=== PATIENT | female | born 1945 | race Caucasian/White ===

== ENCOUNTER → 2016-10-23 | Outpatient (CLI) | payer OTHER ==
[2016-10-23 18:07] LABS: ALT/SGPT 22 U/L (12-78); AST/SGOT 15 U/L (15-37); BLOOD UREA NITROGEN 12 mg/dl (7-18); BUN/CREATININE RATIO 15.2 (10-20); CALCIUM 9.3 mg/dl (8.5-10.1); CARBON DIOXIDE 32 mmol/L (21-32); CHLORIDE 98 mmol/L (98-107); CHOLESTEROL 235 mg/dl (0-200); CREATININE 0.79 mg/dl (0.60-1.20); GLUCOSE 100 mg/dl (70-99); POTASSIUM 4.3 mmol/L (3.5-5.1); SODIUM 138 mmol/L (136-145); TRIGLYCERIDES 106 mg/dl (0-150); VERY LOW DENSITY LIPOPROT CALC 21 mg/dl
[2016-10-23 18:10] LABS: CHOLESTEROL/HDL RATIO 3.9; HDL CHOLESTEROL 60 mg/dl; LDL CHOLESTEROL CALCULATED 154 mg/dl
== END | disposition home or self-care (01) ==
LOC: C.LABMFLN 12:17
PROVIDERS: ATTEND Family Medicine
DX: E78.5 Hyperlipidemia, unspecified (principal); I10 Essential (primary) hypertension

== ENCOUNTER → 2017-09-04 | Outpatient (CLI) | payer OTHER ==
[2017-09-04 18:11] LABS: BLOOD UREA NITROGEN 17 mg/dl (7-18); CALCIUM 9.1 mg/dl (8.5-10.1); CARBON DIOXIDE 35 mmol/L (21-32); CREATININE 0.85 mg/dl (0.60-1.20); GLUCOSE 100 mg/dl (70-99); POTASSIUM 3.8 mmol/L (3.5-5.1); SODIUM 137 mmol/L (136-145)
== END | disposition home or self-care (01) ==
LOC: C.LABMFLN 13:10
PROVIDERS: ATTEND Family Medicine
DX: M79.1 Myalgia (principal); I10 Essential (primary) hypertension

== ENCOUNTER 2023-09-21 00:12 | Observation (INO) ==
--- NOTE | 2023-09-21 00:28 | Emergency Department Note ---
ED Visit Note I was consulted by the Advanced Practice Provider. I personally made/approved the management plan and take responsibility for the patient management. I performed a substantive portion of the visit. This includes the aspects of: The history, physical and medical decision making .
--- NOTE | 2023-09-21 00:29 | Emergency Department Note ---
History of Present Illness General Chief complaint: Arrhythmia/Palpitations Stated complaint: HEART RATE SPEEDS UP THEN SLOWS DOWN,SHAKES Time Seen by Provider: 09/21/23 00:21 History of Present Illness This 78-year-old female presents the ER complaining of racing heart and shortness of breath today. Patient realized her O2 sats were less than 90. Patient states she has been having intermittent racing heart all day. No history of A-fib or a flutter. No prior heart attack or heart failure. Patient had a blood clot back in the 90s. No current blood thinners. Patient denies chest pain, fever, chills, abdominal pain, leg pain or swelling. Patient was 84% on room air and improved on 3 L nasal cannula to the mid 90s. Home Medications Medication Instructions Recorded Confirmed Type aspirin 81 mg tablet,delayed 81 mg PO DAILY #90 tabs 06/08/19 09/21/23 Rx release omega-3 acid ethyl esters 1 gram 1 cap PO DAILY #90 caps 09/05/22 09/21/23 Rx capsule hydrochlorothiazide 25 mg tablet 25 mg PO DAILY #90 tabs 11/20/22 09/21/23 Rx triamcinolone acetonide 0.1 % 1 applic topical BID #15 grams 11/20/22 09/21/23 Rx topical cream famotidine 20 mg tablet (Pepcid) 20 mg PO BID PRN Acid Reflux 05/21/23 09/21/23 History metoprolol succinate 25 mg 25 mg PO DAILY #90 tabs 05/21/23 09/21/23 Rx tablet,extended release 24 hr Allergies Allergy/AdvReac Type Severity Reaction Status Date / Time aspirin Allergy Unknown Verified 09/21/23 02:38 Penicillins Allergy Unknown Verified 09/21/23 02:38 Past Med/Surg History Medical History Acne GERD without esophagitis HTN (hypertension) Hyperlipidemia Ocular hypertension Surgical History No pertinent past surgical history Family History Mother Colorectal cancer Father Lung cancer Denies family history of Ovarian cancer Prostate cancer Myocardial infarction Breast cancer Stroke Social History Smoking Status: Never smoker Tobacco Type: Cigarettes packs per day: 0.5; Second Hand Exposure: No; Do You Dip or Chew Tobacco: No; Hx Alcohol Use: Yes Alcohol type: wine Alcohol Intake Frequency: Monthly or Less Hx Substance Use: No Preferred Language: Venezuelan Visual Impairment: Partially Limited Hearing Ability: Normal Beliefs That Will Affect Care: None marital status: / Current Living Situation: Alone current occupational status: retired How many Children do You have: 2 Feels Safe at Home: Yes Childhood Exposure to Second-Hand Smoke: Yes Diet: regular Diet Comment: regular caffeine: Yes (2 cups of tea a day) during the past year weight has: remained stable Dental Care, Regularly: Yes Physical Activity Frequency: Daily Physical Activity Frequency Comment: does machine at home and walking Seatbelt Use: always Sunscreen Use: Yes Review of Systems A total of 10 systems reviewed and were otherwise negative Physical Exam Vital Signs Vital Signs - 24 hr 09/21/23 00:15 09/21/23 00:25 09/21/23 00:26 Temperature 37 C Temperature Source Oral Pulse Rate 78 74 Respiratory Rate 18 Respiratory Effort / Characteristics Non-Labored Respiratory Depth Normal Blood Pressure 202/71 H Blood Pressure Mean 114 Pulse Oximetry 84 L 84 L Oxygen Delivery Method Room Air Room Air Nasal Cannula Oxygen Flow Rate 0 Sepsis Recent Fever Within 48 Hours No Sepsis New/Unexplained Change in Mental Status No Sepsis Action Taken by Nursing No Action Required Oxygen Flow Rate - Titration 3 Pulse Oximetry Post Tiitration 90 09/21/23 01:50 09/21/23 01:53 Temperature Temperature Source Pulse Rate Respiratory Rate Respiratory Effort / Characteristics Respiratory Depth Blood Pressure Blood Pressure Mean Pulse Oximetry 91 88 L Oxygen Delivery Method Room Air Room Air Oxygen Flow Rate Sepsis Recent Fever Within 48 Hours Sepsis New/Unexplained Change in Mental Status Sepsis Action Taken by Nursing Oxygen Flow Rate - Titration Pulse Oximetry Post Tiitration VITALS: Vitals are noted on the nurse's note and reviewed by myself. Vital signs reviewed GENERAL: Pleasant elderly female, in no acute distress, nondiaphoretic, well- developed well-nourished. SKIN: Capillary reflex less than 2 seconds. HEENT: Normocephalic. PERRLA. EOMI. Nares patent. Mucous membranes moist. Neck is supple without nuchal rigidity. HEART: Regular rate and rhythm LUNGS: Mild inspiratory and expiratory wheezes throughout. No retractions or accessory muscle use. ABDOMEN: Positive bowel sounds x 4. Normal tympanic percussion. Soft, nontender, without masses or organomegaly. Chase sign negative. No guarding or rebound tenderness. no CVA tenderness MUSCULOSKELETAL: No gross musculoskeletal defects. Trace pedal edema bilaterally. NEURO: Patient was alert and oriented to person place and time. No focal neurological deficits. Course Administered Medications Heparin Sodium/Dextrose (Heparin Sodium/Dextrose) 25,000 units in 500 mls @ 23 mls/hr IV .[id number] [facility]; Protocol Stop: 10/21/23 02:14 Last Admin: 09/21/23 02:51 Dose: 1,150 units/hr, 23 mls/hr Documented By: Co-signed By: OG Discontinued Medications Albuterol (Albut/Ipratrop 3mg/0.5mg Neb 3 Ml Vial) 3 ml [facility]B [facility]; Protocol Stop: 09/21/23 00:28 Last Admin: 09/21/23 01:26 Dose: 3 ml Documented By: Furosemide (Furosemide 40 Mg/4 Ml Vial) 40 mg IV ONE ONE Stop: 09/21/23 02:06 Last Admin: 09/21/23 02:44 Dose: 40 mg Documented By: Heparin Sodium (Porcine) (Heparin Sod (Porcine) 1000 Unit/Ml) 5,000 units IV NOW ONE Stop: 09/21/23 02:31 Last Admin: 09/21/23 02:48 Dose: 5,000 units Documented By: Co-signed By: OG Ioversol (Optiray 320 500ml) 125 ml IV ONCE ONE Stop: 09/21/23 01:03 Last Admin: 09/21/23 01:02 Dose: 116 ml Documented By: TRISHA Critical Care Time Critical Care Time: Yes Total Critical Care Time: 35 I have personally spent 35 minutes of critical care time in the direct management of this patient. This includes bedside care, interpretation of diagnostic studies, and testing, discussion with consultants, patient, and family members, and other required patient management activities. This 35 minutes is in excess of all separately billable procedures. Medical Decision Making Medical Records Attestation: I reviewed the patient's medical records. Home Medications Current Medication List: was personally reviewed by me Laboratory Data Attestation: I reviewed the patient's lab results. 09/21/23 00:32 09/21/23 00:32 Lab Results 09/21/23 09/21/23 09/21/23 Range/Units 00:32 00:39 00:49 WBC 5.80 (4.8-10.8) K/ul RBC 4.08 L (4.20-5.40) M/uL Hgb 14.0 (12.0-16.0) g/dl POC Hgb 14.3 (12.0-16.0) g/dl Hct 41.2 (37.0-47.0) % POC Hct 42 (37-47) % MCV 101.0 H (80.0-100.0) fL MCH 34.3 H (25.0-34.0) pg MCHC 34.0 (32.0-36.0) g/dL RDW Std Deviation 46.3 (36.4-46.3) fL RDW Coeff of Huan 12.4 (11.5-14.5) % Plt Count 175 (130-400) K/uL MPV 9.0 L (9.4-12.4) fL Immature Gran % (Auto) 0.2 % Neut % (Auto) 54.3 % Lymph % (Auto) 32.6 % [place] % (Auto) 10.7 % Eos % (Auto) 1.9 % Baso % (Auto) 0.3 % Neut # (Auto) 3.15 (1.40-6.50) K/uL Lymph # (Auto) 1.89 (1.20-3.40) K/uL [place] # (Auto) 0.62 H (0.11-0.59) K/uL Eos # (Auto) 0.11 (0.00-0.50) K/uL Baso # (Auto) 0.02 (0.00-0.20) K/uL Immature Gran # (Auto) 0.01 (0.01-0.20) K/uL PT 10.4 (9.0-12.0) Seconds INR 0.9 (0.9-1.1) APTT 25 (21-31) Seconds PTT Ratio 0.9 VBG pH 7.41 (7.36-7.41) VBG pCO2 57 H (38-50) mmHg VBG pO2 52 mmHg VBG HCO3 36 mmol/L VBG O2 Saturation 82.9 % VBG Base Excess 9.4 mEq/L POC Sodium 142 (135-144) mmol/L Sodium 140 (136-145) mmol/L POC Potassium 4.3 (3.3-5.0) mmol/L Potassium 4.3 (3.5-5.1) mmol/L POC Chloride 97 L (101-112) mmol/L Chloride 100 (98-107) mmol/L Carbon Dioxide 35 H (21-32) mmol/L POC Total CO2 34 H (24-31) mmol/L Anion Gap 5 (3-11) POC Anion Gap 16.0 (16-25) mmol/L POC BUN 18 (7-18) mg/dl BUN 18 (6-23) mg/dl Creatinine 0.78 (0.6-1.2) mg/dl POC Creatinine 0.8 (0.6-1.3) mg/dl Est Cr Clr Drug Dosing 58.1 ml/min Est GFR ( Amer) 83.8 ml/min Est GFR (Non-Af Amer) 72.3 ml/min BUN/Creatinine Ratio 23.1 H (10-20) Glucose 127 H (70-99(Fasting)) mg/dl POC Glucose (other) 130 H (70-99) mg/dl Calcium 9.7 (8.6-10.3) mg/dl POC Ioniz Calcium Anthony 1.27 (1.12-1.32) mmol/l Magnesium 1.8 (1.7-2.4) mg/dl Total Bilirubin 0.6 (0.2-1.0) mg/dl AST 16 (13-39) U/L ALT 12 (7-52) U/L Alkaline Phosphatase 50 (34-104) U/L Troponin I High Sens 8.1 (0-14) pg/ml B-Natriuretic Peptide 65 (0-100) pg/ml Total Protein 7.4 (6.0-8.3) gm/dl Albumin 4.1 (3.4-5.0) gm/dl Globulin 3.3 (2.5-4.0) gm/dl Albumin/Globulin Ratio 1.2 (0.9-2) TSH 5.965 H (0.300-4.500) uIu/ml Free T4 1.02 (0.61-1.60) ng/dl Adenovirus (PCR) Not Detected (NotDetected) B. pertussis DNA (PCR) Not Detected (NotDetected) B.parapertussis DNA PCR Not Detected (NotDetected) C. pneumoniae DNA (PCR) Not Detected (NotDetected) Coronavirus OC43 (PCR) Not Detected (NotDetected) Coronavirus HKU1 (PCR) Not Detected (NotDetected) Coronavirus 229E (PCR) Not Detected (NotDetected) SARS-CoV-2 (PCR) Not Detected (NotDetected) Coronavirus NL63 (PCR) Not Detected (NotDetected) Human Metapneumovir PCR Not Detected (NotDetected) Influenza Type A (PCR) Not Detected (NotDetected) Influenza Type B (PCR) Not Detected (NotDetected) M. pneumoniae (PCR) Not Detected (NotDetected) Parainfluenza 1 (PCR) Not Detected (NotDetected) Parainfluenza 2 (PCR) Not Detected (NotDetected) Parainfluenza 3 (PCR) Not Detected (NotDetected) Parainfluenza 4 (PCR) Not Detected (NotDetected) RSV (PCR) Not Detected (NotDetected) Entero/Rhino (PCR) Not Detected (NotDetected) Imaging Data Attestation: I personally reviewed and interpreted this imaging study as follows: Radiologist's Impression: Chest CTA 09/21/23 00:27 CR Exam(s): CTA CHEST IV Amt: 116 ML OPTIRAY 320 EXAM: CT Angiography Chest With Intravenous Contrast CLINICAL HISTORY: PE. TECHNIQUE: Axial computed tomographic angiography images of the chest with intravenous contrast. CTDI is 24.32 mGy and DLP is 794.88 mGy-cm. Automated exposure control was utilized for the study. A dose lowering technique was utilized adhering to the principles of ALARA. MIP reconstructed images were created and reviewed. COMPARISON: No relevant prior studies available. FINDINGS: Pulmonary arteries: Partially occlusive pulmonary embolism noted involving the right posterior and lateral basal segments there is also subtle partially occlusive filling defect in the right posterior apical segment. Aorta: Atherosclerotic calcification of the aorta. No dissection. Lungs: Noncalcified pulmonary nodules in the posterior left apex measuring up to 4 mm. Diffuse interlobular septal thickening noted. Curvilinear presumed atelectasis or scarring in the medial right middle lobe. Pleural space: Unremarkable. No significant effusion. No pneumothorax. Heart: The cardiac chambers are enlarged. No CT evidence for right heart strain. Trace pericardial effusion only noted in the superior pericardial recess. Bones/joints: No acute fracture. No dislocation. Soft tissues: Unremarkable. Lymph nodes: Unremarkable. No enlarged lymph nodes. IMPRESSION: 1. Partially occlusive pulmonary embolism noted involving the right posterior and lateral basal segments there is also subtle partially occlusive filling defect in the right posterior apical segment. No evidence for right heart strain. 2. Noncalcified pulmonary nodules in the posterior left apex measuring up to 4 mm. Fleischner Society Guidelines (MacMahon, et al. Radiology 2017; 284(1):228-43) suggest that one should consider a follow-up chest CT at 12 months in a patient with a high risk of malignancy due to the morphology and/or location of this nodule. If unchanged, no further follow-up is necessary. 3. Diffuse interlobular septal thickening noted. Mild vascular congestion noted. Communications: Call Doctor Pulmonary Embolism Electronically signed by: Dk Oakley MD 09/21/23 01:52 AM MDM Narrative Prior records/ancillary studies reviewed. Triage Nursing notes reviewed. Additional history obtained from the family. The patient's history was concerning for racing heart and respiratory difficulties. Differential diagnosis: Etiologies such as infections, reactive airway disease, pneumonia, pneumothorax, COPD, CHF, cardiac ischemia, pulmonary embolism, musculoskeletal, gastrointestinal, as well as others were entertained. Physical examination: As above. ER treatment provided: An order was placed for continuous cardiac monitoring. The monitor shows a rate of 60-100 with a sinus rhythm per my interpretation. Nebulizer was ordered On reassessment the patient felt better. Diagnostic interpretation by me: The electrocardiogram was ordered for SOB. ECG: Poor baseline, normal sinus, no acute ST-T wave changes, rate of 77. Impression normal sinus rhythm poor baseline independently interpreted by myself The labs Independently Interpreted by myself revealed negative troponin. Stable H&H. Mild hyperglycemia without DKA VBG was reviewed No worrisome leukocytosis Imaging studies: Chest x-ray with mild pulmonary congestion with no acute consolidation, pneumothorax or free air per my independent interpretation CTA was concerning for PEs per radiology. I did speak to the radiologist in regards to the patient's CAT scan HEART SCORE: Hx: high/mod/low suspicion: 0 ECG: ST depression/nonspecific changes/normal: 0 Age: Greater than 65/45-64/less than 45: 2 Risk factors: (Hypertension, hyperlipidemia, diabetes, coronary disease, tobacco use, cocaine use): 2 Troponin: Greater than 2 times normal limits/1-2 times normal limits/normal: 0 Total: 4 Consultation: A consultation was placed with the hospitalist. The case was discussed and diagnostics were reviewed. The patient was evaluated in the ER for further treatment. Consultation was placed with radiology and the CTA was reviewed. Patient has multiple PEs. This appears to be consistent with multiple PEs. Patient started on heparin. She was medicated as above. Hypercoagulable workup was sent. Patient agreeable treatment plan of admission. Medicine was consulted and case was discussed. She will be admitted to the medical service for further evaluation and workup. By the evaluation outlined above emergent etiologies such as cardiac ischemia, reactive airway disease, pneumonia, pneumothorax, musculoskeletal, serious bacterial infections, as well as others were deemed relatively unlikely. The pt informed about the findings as listed above. All questions were answered and pleased with the treatment. The chart was completed utilizing 500px Speech voice recognition software. Grammatical errors, random word insertions, pronoun errors, and incomplete sentences are an occassional consequence of this system due to software limitations, ambient noise, and hardware issues. Any formal questions or concerns about the content, text, or information contained within the body of this dictation should be directly addressed to the physician golf course assistant for clarification. Impression & Plan Pulmonary embolism, Acute dyspnea Discharge Plan Visit Data Chief Complaint: Arrhythmia/Palpitations Stated Complaint: HEART RATE SPEEDS UP THEN SLOWS DOWN,SHAKES ED Provider: Betzaida Joseph ED Midlevel Provider: Kellee Hairston Discharge Problem: Pulmonary embolism, Acute dyspnea Patient Disposition: Admitted As Inpatient Condition: Fair Forms Stand Alone Forms: My 99 Fahrenheit Prescriptions Prescriptions: No Action omega-3 acid ethyl esters 1 gram capsule 1 cap PO DAILY Qty: 90 3RF aspirin 81 mg tablet,delayed release (DR/EC) 81 mg PO DAILY Qty: 90 3RF hydrochlorothiazide 25 mg tablet 25 mg PO DAILY Qty: 90 3RF triamcinolone acetonide 0.1 % cream 1 applic TOP BID Qty: 15 1RF famotidine [Pepcid] 20 mg tablet 20 mg PO BID PRN (Reason: Acid Reflux) metoprolol succinate 25 mg tablet extended release 24 hr 25 mg PO DAILY Qty: 90 3RF Referrals Referrals: Jere Fernandez DO [Primary Care Provider] - Discharge Problem: Pulmonary embolism Qualifiers: Pulmonary embolism type: unspecified Chronicity: acute Acute cor pulmonale presence: unspecified Qualified Code(s): I26.99 - Other pulmonary embolism without acute cor pulmonale
[2023-09-21 00:52] LABS: Basophils # (auto) 0.02 K/uL (0.00-0.20); Basophils % (auto) 0.3 %; Eosinophils # (auto) 0.11 K/uL (0.00-0.50); Eosinophils % (auto) 1.9 %; Hematocrit (blood only) 41.2 % (37.0-47.0); Immature Granulocytes # (auto) 0.01 K/uL (0.01-0.20); Immature Granulocytes % (auto) 0.2 %; Lymphocytes # (auto) 1.89 K/uL (1.20-3.40); Lymphocytes % (auto) 32.6 %; Mean Corpuscular Hemoglobin 34.3 pg (25.0-34.0); Monocytes # (auto) 0.62 K/uL (0.11-0.59); Monocytes % (auto) 10.7 %; Neutrophils # (auto) 3.15 K/uL (1.40-6.50); Neutrophils % (auto) 54.3 %; Platelet Count 175 K/uL (130-400); RDW Coefficient of Variation 12.4 % (11.5-14.5); RDW Standard Deviation 46.3 fL (36.4-46.3); Red Blood Count 4.08 M/uL (4.20-5.40)
[2023-09-21 00:55] LABS: iSTAT Creatinine 0.8 mg/dl (0.6-1.3); iSTAT Hemoglobin 14.3 g/dl (12.0-16.0); iSTAT Ionized Calcium 1.27 mmol/l (1.12-1.32); iSTAT Potassium 4.3 mmol/L (3.3-5.0)
[2023-09-21] MEDS: OPTIRAY 320 500ml IV ONE (01:02)
[2023-09-21 01:03] LABS: Base Excess VBG 9.4 mEq/L; HCO3 VBG 36 mmol/L; Oxygen Saturation VBG 82.9 %; PCO2 VBG 57 mmHg (38-50); PO2 VBG 52 mmHg; pH VBG 7.41 (7.36-7.41)
[2023-09-21 01:10] LABS: Albumin Globulin Ratio 1.2 (0.9-2); Albumin Level 4.1 gm/dl (3.4-5.0); BUN Creatinine Ratio 23.1 (10-20); Bilirubin,Total 0.6 mg/dl (0.2-1.0); Calcium 9.7 mg/dl (8.6-10.3); Creatinine Clr Calc Pharmacy 58.1 ml/min; Est GFR (African American) 83.8 ml/min; Est GFR (Non-African American) 72.3 ml/min; Globulin 3.3 gm/dl (2.5-4.0); Magnesium 1.8 mg/dl (1.7-2.4); Potassium 4.3 mmol/L (3.5-5.1); Total Protein 7.4 gm/dl (6.0-8.3)
[2023-09-21 01:17] LABS: Troponin I High Sensitivity 8.1 pg/ml (0-14)
[2023-09-21] MEDS: ALBUT/IPRATROP 3MG/0.5MG NEB 3 ML VIAL NEB STA (01:26)
[2023-09-21 01:27] LABS: Thyroid Stimulating Hormone 5.965 uIu/ml (0.300-4.500)
[2023-09-21 01:49] LABS: INR 0.9 (0.9-1.1); Partial Thromboplastin Ratio 0.9; Partial Thromboplastin Time 25 Seconds (21-31); Prothrombin Time 10.4 Seconds (9.0-12.0)
--- NOTE | 2023-09-21 01:52 | CT Scan Report ---
Exam(s): CTA CHEST IV Amt: 116 ML OPTIRAY 320 EXAM: CT Angiography Chest With Intravenous Contrast CLINICAL HISTORY: PE. TECHNIQUE: Axial computed tomographic angiography images of the chest with intravenous contrast. CTDI is 24.32 mGy and DLP is 794.88 mGy-cm. Automated exposure control was utilized for the study. A dose lowering technique was utilized adhering to the principles of ALARA. MIP reconstructed images were created and reviewed. COMPARISON: No relevant prior studies available. FINDINGS: Pulmonary arteries: Partially occlusive pulmonary embolism noted involving the right posterior and lateral basal segments there is also subtle partially occlusive filling defect in the right posterior apical segment. Aorta: Atherosclerotic calcification of the aorta. No dissection. Lungs: Noncalcified pulmonary nodules in the posterior left apex measuring up to 4 mm. Diffuse interlobular septal thickening noted. Curvilinear presumed atelectasis or scarring in the medial right middle lobe. Pleural space: Unremarkable. No significant effusion. No pneumothorax. Heart: The cardiac chambers are enlarged. No CT evidence for right heart strain. Trace pericardial effusion only noted in the superior pericardial recess. Bones/joints: No acute fracture. No dislocation. Soft tissues: Unremarkable. Lymph nodes: Unremarkable. No enlarged lymph nodes. IMPRESSION: 1. Partially occlusive pulmonary embolism noted involving the right posterior and lateral basal segments there is also subtle partially occlusive filling defect in the right posterior apical segment. No evidence for right heart strain. 2. Noncalcified pulmonary nodules in the posterior left apex measuring up to 4 mm. Fleischner Society Guidelines (MacMahon, et al. Radiology 2017; 284(1):228-43) suggest that one should consider a follow-up chest CT at 12 months in a patient with a high risk of malignancy due to the morphology and/or location of this nodule. If unchanged, no further follow-up is necessary. 3. Diffuse interlobular septal thickening noted. Mild vascular congestion noted. Communications: Call Doctor Pulmonary Embolism Electronically signed by: Dk Oakley MD 09/21/23 01:52 AM
[2023-09-21] MEDS ORDERED: Heparin IV Adult Wt-Based Standard w/ INITIAL Bolus Protocol IV STA (01:54)
[2023-09-21 02:02] LABS: T4 Free Thyroxine 1.02 ng/dl (0.61-1.60)
[2023-09-21 02:07] LABS: Adenovirus PCR Not Detected (NotDetected); Bordetella parapertussis PCR Not Detected (NotDetected); Bordetella pertussis PCR Not Detected (NotDetected); Chlamydia pneumoniae PCR Not Detected (NotDetected); Coronavirus 229E PCR Not Detected (NotDetected); Coronavirus CoV-2 (COVID19)PCR Not Detected (NotDetected); Coronavirus HKU1 PCR Not Detected (NotDetected); Coronavirus NL63 PCR Not Detected (NotDetected); Coronavirus OC43PCR Not Detected (NotDetected); Human Metapneumovirus PCR Not Detected (NotDetected); Influenza A PCR Not Detected (NotDetected); Influenza B PCR Not Detected (NotDetected); Mycoplasma pneumoniae PCR Not Detected (NotDetected); Parainfluenza Virus 1 PCR Not Detected (NotDetected); Parainfluenza Virus 2 PCR Not Detected (NotDetected); Parainfluenza Virus 3 PCR Not Detected (NotDetected); Parainfluenza Virus 4 PCR Not Detected (NotDetected); Respiratory Syncytial VirusPCR Not Detected (NotDetected); Rhinovirus/Enterovirus PCR Not Detected (NotDetected)
[2023-09-21] MEDS ORDERED: HEPARIN SOD (PORCINE) 1000 UNIT/ML IV ONE (02:09)
[2023-09-21] MEDS: FUROSEMIDE 40 MG/4 ML VIAL IV ONE (02:44)
[2023-09-21] MEDS: HEPARIN SOD (PORCINE) 1000 UNIT/ML IV ONE (02:48)
[2023-09-21] MEDS: HEPARIN SODIUM/DEXTROSE 25,000 UNITS/500 ML BAG IV SCH (02:51)
--- NOTE | 2023-09-21 03:20 | History & Physical Report ---
Date of Service September 21, 2023 Assessment & Plan (1) Acute respiratory failure with hypoxia: (2) Pulmonary embolism: (3) COPD exacerbation: (4) Palpitations: (5) Hyperlipidemia: (6) HTN (hypertension): (7) GERD without esophagitis: Plan Acute respiratory failure with hypoxia/pulmonary emboli/COPD exacerbation/pulmonary nodules- CT angiography with noted right-sided pulmonary emboli Continue heparin IV standard dosing per protocol begun in the ED Hypercoagulable profile ordered Duonebs every 2 hours as needed Guaifenesin extended release 12 mg p.o. twice daily with history of tobacco use With clinical examination today, she likely would benefit from having medication such as Trelegy Ellipta upon discharge Will need have a follow-up CT in 12 months to follow-up on pulmonary nodules Pulmonary vascular congestion noted on CT- Patient did receive a single dose from of furosemide 40 mg IV from the ED, when I prescribe any further Assess vascular status in the a.m. Hypertension- Continue hydrochlorothiazide, metoprolol succinate and aspirin GERD- Continue famotidine, change from as needed to scheduled History of Present Illness Chief Complaint: The patient presents to the emergency department with complaint of her heart racing and then slowing and then racing repeatedly throughout the day today, with associated shortness of breath. Primary Care Provider: Jere Fernandez DO The patient is a 78-year-old female with a past medical history including blood clots in the 90s, palpitations, ocular hypertension, hyperlipidemia, hypertension, GERD without esophagitis, bronchitis and is a former smoker. She presents to the emergency department symptoms as noted above. Upon arrival to the emergency department, the patient's pulse ox on room air was 84%, and on 3 L proved to the mid 90s. While in the emergency department, she remained in normal sinus rhythm, with max rate recorded 78, and decreased to 57 at last recording. Patient underwent CT angiography of chest while in the ED, which showed multiple areas of right-sided pulmonary emboli. Pulmonary nodules on the left side up to 4 mm in size were seen, with recommendation for repeat CT in 12 months. Of note, patient's father had lung cancer Allergies Allergy/AdvReac Type Severity Reaction Status Date / Time aspirin Allergy Unknown Verified 09/21/23 02:38 Penicillins Allergy Unknown Verified 09/21/23 02:38 Home Medications Medication Instructions Recorded Confirmed Type aspirin 81 mg tablet,delayed 81 mg PO DAILY #90 tabs 06/08/19 09/21/23 Rx release omega-3 acid ethyl esters 1 gram 1 cap PO DAILY #90 caps 09/05/22 09/21/23 Rx capsule hydrochlorothiazide 25 mg tablet 25 mg PO DAILY #90 tabs 11/20/22 09/21/23 Rx triamcinolone acetonide 0.1 % 1 applic topical BID #15 grams 11/20/22 09/21/23 Rx topical cream famotidine 20 mg tablet (Pepcid) 20 mg PO BID PRN Acid Reflux 05/21/23 09/21/23 History metoprolol succinate 25 mg 25 mg PO DAILY #90 tabs 05/21/23 09/21/23 Rx tablet,extended release 24 hr Past Med/Surg History Medical History Acne GERD without esophagitis HTN (hypertension) Hyperlipidemia Ocular hypertension Surgical History No pertinent past surgical history Family History Mother Colorectal cancer Father Lung cancer Denies family history of Ovarian cancer Prostate cancer Myocardial infarction Breast cancer Stroke Social History Smoking Status: Former smoker Tobacco Type: Cigarettes packs per day: 0.5; Second Hand Exposure: No; Do You Dip or Chew Tobacco: No; Hx Alcohol Use: Yes Alcohol type: wine Alcohol Intake Frequency: Monthly or Less Hx Substance Use: No Preferred Language: Malay Communication Ability: Effective Visual Impairment: Partially Limited Hearing Ability: Normal Property Preservation Specialist Required: No Beliefs That Will Affect Care: None marital status: / Current Living Situation: Alone current occupational status: retired How many Children do You have: 2 Other Information That Helps Us Care for You: No Feels Safe at Home: Yes Safety Concerns: Feels Safe At This Time Childhood Exposure to Second-Hand Smoke: Yes Diet: regular Diet Comment: regular caffeine: Yes (2 cups of tea a day) during the past year weight has: remained stable Dental Care, Regularly: Yes Physical Activity Frequency: Daily Physical Activity Frequency Comment: does machine at home and walking Seatbelt Use: always Sunscreen Use: Yes Assistive Devices: Glasses Review of Systems Review of Systems: The patient denies lower extremity swelling, sore throat, fevers, chills, sweats, nausea, vomiting, diarrhea , constipation, abdominal pain, pelvic pain, blood in urine or stool, dysuria, urinary frequency or urgency, lightheadedness, dizziness, headache, memory loss, loss of consciousness, rash, abnormal bruising or bleeding, imbalance, focal or generalized weakness, numbness or tingling in arms or legs, generalized arthralgias or myalgias, back or neck pain, or night sweats. The review of systems is otherwise negative other than for that already noted above, and at least 10 systems have been reviewed. Physical Exam Physical Exam: The patient is awake, alert and oriented 3, normocephalic and atraumatic, lying in bed and in no acute distress. HEENT--PERRL, EOMI, mucous membranes and oropharynx normal Neck--supple. No JVD. No bruits. Thyroid normal, trachea midline, no adenopathy. Heart--normal S1 and S2. No murmurs, rubs or gallops. Lungs--coarse breath sounds with few wheezes bilaterally, overall diminished throughout. No respiratory distress, no accessory muscle use. Abdomen--normal bowel sounds and soft. Nontender. Nondistended, no hernias or masses, no organomegaly. Extremities--No edema. Dermatologic--normal skin turgor, normal color, no abnormal lymph nodes, no rash. Neurologic--cranial nerves II through XII grossly intact. Rheumatologic--normal range of motion. Psychiatric--normal affect. Results & Data Results & Data Vital Signs (Past 12 Hours) Vital Signs Temp Pulse Resp BP Pulse Ox O2 Del Method O2 Flow Rate 09/21/23 01:53 88 L Room Air 09/21/23 01:50 91 Room Air 09/21/23 00:26 74 09/21/23 00:25 84 L Room Air, Nasal Cannula 0 09/21/23 00:15 37 C 78 18 202/71 H 84 L Room Air Laboratory Results Laboratory Results WBC 5.80 K/ul (4.8-10.8) 09/21/23 00:32 RBC 4.08 M/uL (4.20-5.40) L 09/21/23 00:32 Hgb 14.0 g/dl (12.0-16.0) 09/21/23 00:32 POC Hgb 14.3 g/dl (12.0-16.0) 09/21/23 00:39 Hct 41.2 % (37.0-47.0) 09/21/23 00:32 POC Hct 42 % (37-47) 09/21/23 00:39 MCV 101.0 fL (80.0-100.0) H 09/21/23 00:32 MCH 34.3 pg (25.0-34.0) H 09/21/23 00:32 MCHC 34.0 g/dL (32.0-36.0) 09/21/23 00:32 RDW Std Deviation 46.3 fL (36.4-46.3) 09/21/23 00: RDW Coeff of Huan 12.4 % (11.5-14.5) 09/21/23 00:32 Plt Count 175 K/uL (130-400) 09/21/23 00:32 MPV 9.0 fL (9.4-12.4) L 09/21/23 00:32 Immature Gran % (Auto) 0.2 % 09/21/23 00:32 Neut % (Auto) 54.3 % 09/21/23 00:32 Lymph % (Auto) 32.6 % 09/21/23 00:32 Avery % (Auto) 10.7 % 09/21/23 00:32 Eos % (Auto) 1.9 % 09/21/23 00:32 Baso % (Auto) 0.3 % 09/21/23 00:32 Neut # (Auto) 3.15 K/uL (1.40-6.50) 09/21/23 00:32 Lymph # (Auto) 1.89 K/uL (1.20-3.40) 09/21/23 00:32 Avery # (Auto) 0.62 K/uL (0.11-0.59) H 09/21/23 00:32 Eos # (Auto) 0.11 K/uL (0.00-0.50) 09/21/23 00:32 Baso # (Auto) 0.02 K/uL (0.00-0.20) 09/21/23 00:32 Immature Gran # (Auto) 0.01 K/uL (0.01-0.20) 09/21/23 00:32 PT 10.4 Seconds (9.0-12.0) 09/21/23 00:32 INR 0.9 (0.9-1.1) 09/21/23 00:32 APTT 25 Seconds (21-31) 09/21/23 00:32 PTT Ratio 0.9 09/21/23 00:32 VBG pH 7.41 (7.36-7.41) 09/21/23 00:49 VBG pCO2 57 mmHg (38-50) H 09/21/23 00:49 VBG pO2 52 mmHg 09/21/23 00:49 VBG HCO3 36 mmol/L 09/21/23 00:49 VBG O2 Saturation 82.9 % 09/21/23 00:49 VBG Base Excess 9.4 mEq/L 09/21/23 00:49 POC Sodium 142 mmol/L (135-144) 09/21/23 00:39 Sodium 140 mmol/L (136-145) 09/21/23 00:32 POC Potassium 4.3 mmol/L (3.3-5.0) 09/21/23 00:39 Potassium 4.3 mmol/L (3.5-5.1) 09/21/23 00:32 POC Chloride 97 mmol/L (101-112) L 09/21/23 00:39 Chloride 100 mmol/L (98-107) 09/21/23 00:32 Carbon Dioxide 35 mmol/L (21-32) H 09/21/23 00:32 POC Total CO2 34 mmol/L (24-31) H 09/21/23 00:39 Anion Gap 5 (3-11) 09/21/23 00:32 POC Anion Gap 16.0 mmol/L (16-25) 09/21/23 00:39 POC BUN 18 mg/dl (7-18) 09/21/23 00:39 BUN 18 mg/dl (6-23) 09/21/23 00:32 Creatinine 0.78 mg/dl (0.6-1.2) 09/21/23 00:32 POC Creatinine 0.8 mg/dl (0.6-1.3) 09/21/23 00:39 Est Cr Clr Drug Dosing 58.1 ml/min 09/21/23 00:32 Est GFR ( Amer) 83.8 ml/min 09/21/23 00:32 Est GFR (Non-Af Amer) 72.3 ml/min 09/21/23 00:32 BUN/Creatinine Ratio 23.1 (10-20) H 09/21/23 00:32 Glucose 127 mg/dl (70-99(Fasting)) H 09/21/23 00:32 POC Glucose (other) 130 mg/dl (70-99) H 09/21/23 00:39 Calcium 9.7 mg/dl (8.6-10.3) 09/21/23 00:32 POC Ioniz Calcium Anthony 1.27 mmol/l (1.12-1.32) 09/21/23 00:39 Magnesium 1.8 mg/dl (1.7-2.4) 09/21/23 00:32 Total Bilirubin 0.6 mg/dl (0.2-1.0) 09/21/23 00:32 AST 16 U/L (13-39) 09/21/23 00:32 ALT 12 U/L (7-52) 09/21/23 00:32 Alkaline Phosphatase 50 U/L (34-104) 09/21/23 00:32 Troponin I High Sens 8.1 pg/ml (0-14) 09/21/23 00:32 B-Natriuretic Peptide 65 pg/ml (0-100) 09/21/23 00:49 Total Protein 7.4 gm/dl (6.0-8.3) 09/21/23 00:32 Albumin 4.1 gm/dl (3.4-5.0) 09/21/23 00:32 Globulin 3.3 gm/dl (2.5-4.0) 09/21/23 00:32 Albumin/Globulin Ratio 1.2 (0.9-2) 09/21/23 00:32 TSH 5.965 uIu/ml (0.300-4.500) H 09/21/23 00:32 Free T4 1.02 ng/dl (0.61-1.60) 09/21/23 00:32 Adenovirus (PCR) Not Detected (NotDetected) 09/21/23 00:32 B. pertussis DNA (PCR) Not Detected (NotDetected) 09/21/23 00:32 B.parapertussis DNA PCR Not Detected (NotDetected) 09/21/23 00:32 C. pneumoniae DNA (PCR) Not Detected (NotDetected) 09/21/23 00:32 Coronavirus OC43 (PCR) Not Detected (NotDetected) 09/21/23 00:32 Coronavirus HKU1 (PCR) Not Detected (NotDetected) 09/21/23 00:32 Coronavirus 229E (PCR) Not Detected (NotDetected) 09/21/23 00:32 SARS-CoV-2 (PCR) Not Detected (NotDetected) 09/21/23 00:32 Coronavirus NL63 (PCR) Not Detected (NotDetected) 09/21/23 00:32 Human Metapneumovir PCR Not Detected (NotDetected) 09/21/23 00:32 Influenza Type A (PCR) Not Detected (NotDetected) 09/21/23 00:32 Influenza Type B (PCR) Not Detected (NotDetected) 09/21/23 00:32 M. pneumoniae (PCR) Not Detected (NotDetected) 09/21/23 00:32 Parainfluenza 1 (PCR) Not Detected (NotDetected) 09/21/23 00:32 Parainfluenza 2 (PCR) Not Detected (NotDetected) 09/21/23 00:32 Parainfluenza 3 (PCR) Not Detected (NotDetected) 09/21/23 00:32 Parainfluenza 4 (PCR) Not Detected (NotDetected) 09/21/23 00:32 RSV (PCR) Not Detected (NotDetected) 09/21/23 00:32 Entero/Rhino (PCR) Not Detected (NotDetected) 09/21/23 00:32 Impressions Chest CTA 09/21/23 00:27 CR Exam(s): CTA CHEST IV Amt: 116 ML OPTIRAY 320 EXAM: CT Angiography Chest With Intravenous Contrast CLINICAL HISTORY: PE. TECHNIQUE: Axial computed tomographic angiography images of the chest with intravenous contrast. CTDI is 24.32 mGy and DLP is 794.88 mGy-cm. Automated exposure control was utilized for the study. A dose lowering technique was utilized adhering to the principles of ALARA. MIP reconstructed images were created and reviewed. COMPARISON: No relevant prior studies available. FINDINGS: Pulmonary arteries: Partially occlusive pulmonary embolism noted involving the right posterior and lateral basal segments there is also subtle partially occlusive filling defect in the right posterior apical segment. Aorta: Atherosclerotic calcification of the aorta. No dissection. Lungs: Noncalcified pulmonary nodules in the posterior left apex measuring up to 4 mm. Diffuse interlobular septal thickening noted. Curvilinear presumed atelectasis or scarring in the medial right middle lobe. Pleural space: Unremarkable. No significant effusion. No pneumothorax. Heart: The cardiac chambers are enlarged. No CT evidence for right heart strain. Trace pericardial effusion only noted in the superior pericardial recess. Bones/joints: No acute fracture. No dislocation. Soft tissues: Unremarkable. Lymph nodes: Unremarkable. No enlarged lymph nodes. IMPRESSION: 1. Partially occlusive pulmonary embolism noted involving the right posterior and lateral basal segments there is also subtle partially occlusive filling defect in the right posterior apical segment. No evidence for right heart strain. 2. Noncalcified pulmonary nodules in the posterior left apex measuring up to 4 mm. Fleischner Society Guidelines (MacMahon, et al. Radiology 2017; 284(1):228-43) suggest that one should consider a follow-up chest CT at 12 months in a patient with a high risk of malignancy due to the morphology and/or location of this nodule. If unchanged, no further follow-up is necessary. 3. Diffuse interlobular septal thickening noted. Mild vascular congestion noted. Communications: Call Doctor Pulmonary Embolism Electronically signed by: Dk Oakley MD 09/21/23 01:52 AM Code Status & VTE Plan Code Status Full code VTE Prophylaxis Plan VTE Prophylaxis will be ordered: Yes PG Care Time/CCT Total # of Minutes Spent Total Time Spent with Patient: Total time spent is greater than 50% in coordination of care (as documented) at patient's floor/unit and/or counseling patient: Coding Level of Care Code 03524 INT INP/OBS CARE 3/75MIN Diagnoses Acute respiratory failure with hypoxia J96.01 Pulmonary embolism I26.99 Acute cor pulmonale presence: unspecified Chronicity: acute Pulmonary embolism type: unspecified COPD exacerbation J44.1 Palpitations R00.2 Hyperlipidemia E78.5 HTN (hypertension) I10 GERD without esophagitis K21.9 (2) Pulmonary embolism Acute cor pulmonale presence: unspecified Chronicity: acute Pulmonary embolism type: unspecified Qualified Code(s): I26.99 - Other pulmonary embolism without acute cor pulmonale
[2023-09-21] MEDS ORDERED: ACETAMINOPHEN 325 MG TAB PO PRN (03:50)
[2023-09-21] MEDS ORDERED: ONDANSETRON INJ 2 MG/ML 2 ML VIAL IV PRN (03:50)
[2023-09-21] MEDS ORDERED: ALBUT/IPRATROP 3MG/0.5MG NEB 3 ML VIAL NEB PRN (06:28)
--- NOTE | 2023-09-21 07:41 | XRay Report ---
XR chest 1V portable HISTORY: 78 years-old Female Dysrhythmia COMPARISON: CTA chest of same day TECHNIQUE: AP view of the chest FINDINGS: Cardiac silhouette is enlarged. Atherosclerosis of the aorta. Emphysema with bronchial wall thickenin g. Ill-defined 2.2 cm nodular density of the left upper lobe. No pneumothorax, pleural effusion, or o vert pulmonary edema or lobar airspace consolidation. Mild subsegmental bibasilar opacities favor ate lectasis. Degenerative changes of the shoulders and spine. IMPRESSION: 1. Cardiomegaly without acute process. 2. Emphysema with mild bibasilar atelectasis versus scarring. 3. 2.2 cm left upper lobe nodular density correlates with a groundglass nodule of the left upper lobe suggestive of an adenomatous lesion. 3 month follow-up chest CT recommended. ACT 112: Positive. There are findings on this exam that require communication between the performing entity and the patient following Patient Test Result Information Act ([place] Act 112) guidelines. The above report was generated using voice recognition software. It may contain grammatical, syntax o r spelling errors. Electronically signed by: Wallace Nicolas M.D. 09/21/2023 7:40 AM
--- NOTE | 2023-09-21 08:02 | Hospitalist Progress Note ---
Date of Service September 21, 2023 Assessment & Plan (1) Acute respiratory failure with hypoxia: (2) Pulmonary embolism: (3) COPD exacerbation: (4) Palpitations: (5) Hyperlipidemia: (6) HTN (hypertension): (7) GERD without esophagitis: Plan Acute respiratory failure with hypoxia/pulmonary emboli/COPD exacerbation/pulmonary nodules- CT angiography with noted right-sided pulmonary emboli Continue heparin IV standard dosing per protocol begun in the ED Hypercoagulable profile ordered Duonebs every 2 hours as needed Guaifenesin extended release 12 mg p.o. twice daily with history of tobacco use With clinical examination today, she likely would benefit from having medication such as Trelegy Ellipta upon discharge Will need have a follow-up CT in 12 months to follow-up on pulmonary nodules Pulmonary vascular congestion noted on CT- Patient did receive a single dose from of furosemide 40 mg IV from the ED, when I prescribe any further Assess vascular status in the a.m. Hypertension- Continue hydrochlorothiazide, metoprolol succinate and aspirin GERD- Continue famotidine, change from as needed to scheduled Admission and Anticipated Discharge Date Admission Date: September 21, 2023 Results & Data Results & Data Vital Signs (Past 12 Hours) Vital Signs Temp Pulse Pulse Resp BP BP Pulse Ox 09/21/23 07:30 52 L 20 137/74 96 09/21/23 07:15 52 L 09/21/23 07:00 52 L 20 138/92 96 09/21/23 04:30 09/21/23 04:30 36.9 C 57 L 20 150/61 H 98 09/21/23 01:53 88 L 09/21/23 01:50 91 09/21/23 00:26 74 09/21/23 00:25 84 L 09/21/23 00:15 37 C 78 18 202/71 H 84 L O2 Del Method O2 Flow Rate 09/21/23 07:30 Nasal Cannula 2 09/21/23 07:15 09/21/23 07:00 Nasal Cannula 2 09/21/23 04:30 Nasal Cannula 2 09/21/23 04:30 Nasal Cannula 2 09/21/23 01:53 Room Air 09/21/23 01:50 Room Air 09/21/23 00:26 09/21/23 00:25 Room Air, Nasal Cannula 0 09/21/23 00:15 Room Air (2) Pulmonary embolism Acute cor pulmonale presence: unspecified Chronicity: acute Pulmonary embolism type: unspecified Qualified Code(s): I26.99 - Other pulmonary embolism without acute cor pulmonale
--- NOTE | 2023-09-21 08:19 | Pulmonary Consultation ---
Date of Consultation September 21, 2023 Assessment & Plan (1) Pulmonary embolism: Acute cor pulmonale presence: unspecified Chronicity: acute Pulmonary embolism type: unspecified Qualified Code(s): I26.99 - Other pulmonary embolism without acute cor pulmonale (2) Pulmonary nodule: (3) Smoking history: Plan IMPRESSION: 78-year-old female presenting with palpitations and lightheadedness found to have RIGHT-sided subsegmental pulmonary emboli and pulmonary nodule. Pulmonary consulted for further recommendations. RECOMMENDATIONS: 1. Pulmonary embolism - Review of his images shows subsegmental RIGHT lower lung filling defect consistent with pulmonary embolism. No associated infarct or strain appreciated. Patient has not leak troponins and her BMP is unremarkable. Patient with a prior history of blood clot and 1996 and previously had been on Coumadin in the past. This likely indicates the need for lifelong anticoagulation and an unprovoked pulmonary embolism. This could be deferred to hematology for their expert opinion, however guidelines would recommend lifelong anticoagulation. Would recommend ultrasound of the bilateral lower extremities to assess for source. Echocardiogram for the sake of completion. I do not dissipate this to be a hemodynamically significant pulmonary embolism, so follow-up CTA and echocardiogram would not be necessary moving forward unless there was significant finding on echocardiogram. I am not convinced that this PE is the primary cause of the patient's hypoxia. See below. 2. Pulmonary nodules - Patient with pulmonary nodules noted on CTA. Large 2.0 centimeter groundglass opacity appreciated in the LEFT upper lobe. Unable to appreciate any prior imaging studies of the chest. Given the patient's significant smoking history, consideration for sooner follow-up CT scan in 3 to 6 months would be most prudent. Certainly, we can follow-up with her in the pulmonary office in the next month and arrange follow-up imaging studies. Would recommend that we reach out to local institutions to see if there is comparison studies as well, however this could be conducted in the outpatient setting during initial hospital follow-up as well. 3. Smoking history - Patient with approximate [id number] history of smoking. She quit greater than 17 years ago. 4. Patient with nocturnal hypoxemia. Given the patient's baseline serum elevation of her CO2, question if there is degree of ventilatory dysfunction and/or SAM contributing to this. Would recommend outpatient polysomnography as well. Thank you for allowing us participate in the care of this patient. Pulmonary medicine will sign off at this time. We will be happy to see the patient back in 1 month in the outpatient setting for continued management. Supervising Physician Co-Signing Physician Notes Patient seen and examined. EMR reviewed. Agree with assessment plan as noted by GIOVANNA. Lifelong anticoagulation recommended. DOAC is appropriate. Outpatient PSG. Will need follow-up for pulmonary nodules. Would be happy to see her back in pulmonary clinic in 3 to 4 months with a follow-up noncontrast CT of the chest. Pulmonary will sign off. Feel free to contact us with questions or concerns History of Present Illness Reason for Consultation: 's Requesting Physician: Dr. Murry Attending Physician: Jai Hollis DO History of Present Illness Patient is a 78-year-old female with a past medical history of blood clots in 1995 which she related to a history of a "bruise". She had to be on Coumadin at that time, but reports that she was never diagnosed with a coagulopathy. She also endorses a past medical history of ocular hypertension, hyperlipidemia, hypertension, GERD, esophagitis, recurrent bronchitis, and history of smoking. She reports that yesterday she noticed that she was having transient episodes of tachycardia and sensation of palpitations. When she laid down in the evening, she noted that her heart continue to race. She was also having some associated dizziness. She reports no symptoms of shortness of breath. She presented to the emergency department where she underwent CTA which demonstrated subsegmental pulmonary emboli. She was started on a heparin drip and admitted. The patient was noted to desaturate overnight and was placed on supplemental oxygen. This morning, she reports no return of palpitations. No complaints of chest pain. She has had no shortness of breath. She reports no recent long distance travel. No family history of bleeding disorders. No known malignancies. Patient does report a prior history of smoking approximately half pack a day for greater than 20 years. She quit 17 years ago. No formal diagnosis of COPD. She does not use inhalers regularly. She does report a few episodes of bronchitis previously diagnosed a few years ago. No recurrent pneumonias. She is uncertain of her sleep pattern, but denies daytime drowsiness or frequent wakefulness throughout the night. She has never been evaluated from a sleep perspective. Patient reports no environmental allergies. No history of connective tissue diseases. 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 She does report a family history significant for lung cancer. Allergies Allergy/AdvReac Type Severity Reaction Status Date / Time aspirin Allergy Unknown Verified 09/21/23 02:38 Penicillins Allergy Unknown Verified 09/21/23 02:38 Home Medications Medication Instructions Recorded Confirmed Type aspirin 81 mg tablet,delayed 81 mg PO DAILY #90 tabs 06/08/19 09/21/23 Rx release omega-3 acid ethyl esters 1 gram 1 cap PO DAILY #90 caps 09/05/22 09/21/23 Rx capsule hydrochlorothiazide 25 mg tablet 25 mg PO DAILY #90 tabs 11/20/22 09/21/23 Rx triamcinolone acetonide 0.1 % 1 applic topical BID #15 grams 11/20/22 09/21/23 Rx topical cream famotidine 20 mg tablet (Pepcid) 20 mg PO BID PRN Acid Reflux 05/21/23 09/21/23 History metoprolol succinate 25 mg 25 mg PO DAILY #90 tabs 05/21/23 09/21/23 Rx tablet,extended release 24 hr apixaban 5 mg tablet (Eliquis) 5 mg PO Q12H #74 tabs 09/21/23 Rx Patient History Medical History Acne GERD without esophagitis HTN (hypertension) Hyperlipidemia Ocular hypertension Surgical History No pertinent past surgical history Family History Mother Colorectal cancer Father Lung cancer Denies family history of Ovarian cancer Prostate cancer Myocardial infarction Breast cancer Stroke Social History Smoking Status: Former smoker Tobacco Type: Cigarettes packs per day: 0.5; Second Hand Exposure: No; Do You Dip or Chew Tobacco: No; Hx Alcohol Use: Yes Alcohol type: wine Alcohol Intake Frequency: Monthly or Less Hx Substance Use: No Preferred Language: [place] Communication Ability: Effective Visual Impairment: Partially Limited Hearing Ability: Normal 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 Beliefs That Will Affect Care: None marital status: / Current Living Situation: Alone current occupational status: retired How many Children do You have: 2 Feels Safe at Home: Yes Childhood Exposure to Second-Hand Smoke: Yes Diet: regular Diet Comment: regular caffeine: Yes (2 cups of tea a day) during the past year weight has: remained stable Dental Care, Regularly: Yes Physical Activity Frequency: Daily Physical Activity Frequency Comment: does machine at home and walking Seatbelt Use: always Sunscreen Use: Yes Assistive Devices: None Review of Systems Review of Systems: A complete 10 point review of systems was reviewed with the patient with pertinent positives and negatives as per history of present illness. All else were negative. Physical Exam Physical Exam: VITAL SIGNS - Vital signs and nursing notes were reviewed. GENERAL - 78-year-old female appearing her stated age who is in no acute distress. Communicates well with provider and answers questions appropriately. SKIN - Without rashes or lesions. NOSE - Midline and without cyanosis. MOUTH/OROPHARYNX - Without perioral cyanosis. NECK - Neck with FROM. LUNGS - Chest wall evaluation demonstrates normal chest wall A:P diameter. Auscultation reveals clear breath sounds bilaterally without wheezes, rales, or rhonchi. CARDIAC - RRR with S1/S2. No murmur, rubs, or gallops appreciated. ABDOMEN - Abdominal inspection demonstrates an obese abdomen. BS normoactive all four quadrants. No tenderness, palpable masses, or ascites noted. EXTREMITIES - Nail clubbing not present. No peripheral cyanosis. No pretibial edema present. +3/5 radial palpated throughout. PSYCH - A&Ox3 and cooperates fully with examiner. Pt is very pleasant and interacts well with examiner. Results & Data Results & Data Vital Signs (Past 12 Hours) Vital Signs Temp Pulse Pulse Resp BP BP Pulse Ox 09/21/23 07:30 52 L 20 137/74 96 09/21/23 07:15 52 L 09/21/23 07:00 52 L 20 138/92 96 09/21/23 04:30 09/21/23 04:30 36.9 C 57 L 20 150/61 H 98 09/21/23 01:53 88 L 09/21/23 01:50 91 09/21/23 00:26 74 09/21/23 00:25 84 L 09/21/23 00:15 37 C 78 18 202/71 H 84 L O2 Del Method O2 Flow Rate 09/21/23 07:30 Nasal Cannula 2 09/21/23 07:15 09/21/23 07:00 Nasal Cannula 2 09/21/23 04:30 Nasal Cannula 2 09/21/23 04:30 Nasal Cannula 2 09/21/23 01:53 Room Air 09/21/23 01:50 Room Air 09/21/23 00:26 09/21/23 00:25 Room Air, Nasal Cannula 0 09/21/23 00:15 Room Air PG Care Time/CCT Total # of Minutes Spent Total Time Spent with Patient: Total time spent is greater than 50% in coordination of care (as documented) at patient's floor/unit and/or counseling patient: Coding Level of Care Code 48760 INT INP/OBS CARE MIN Diagnoses Pulmonary embolism I26.99 Acute cor pulmonale presence: unspecified Chronicity: acute Pulmonary embolism type: unspecified Pulmonary nodule R91.1 Smoking history Z87.891
[2023-09-21] MEDS: ASPIRIN 81 MG ECTAB PO SCH (08:41)
[2023-09-21] MEDS: FAMOTIDINE 20 MG TAB PO SCH (08:41)
[2023-09-21] MEDS: hydroCHLOROthiazide 25 MG TAB PO SCH (08:42)
[2023-09-21] MEDS: METOPROLOL SUCC 25MG EXT REL TAB PO SCH (08:42)
[2023-09-21] MEDS: guaiFENesin 600 MG TABCR PO SCH (08:42)
[2023-09-21 09:25] LABS: ANTI-Xa, UFH(UnfractionatedHep 1.15 IU/ml (0.3-0.7)
--- NOTE | 2023-09-21 09:48 | Electrocardiogram Report ---
Test Reason : Blood Pressure : / mmHG Vent. Rate : 077 BPM Atrial Rate : 077 BPM P-R Int : 180 ms QRS Dur : 088 ms QT Int : 360 ms P-R-T Axes : 000 000 145 degrees QTc Int : 407 ms Normal sinus rhythm Nonspecific ST and T wave abnormality Abnormal ECG No previous ECGs available Confirmed by Markie Colbert ([id number]) on 09/21/2023 9:48:22 AM Referred By: REFERRED SELF Confirmed By:Markie Colbert
[2023-09-21] MEDS: APIXABAN 5 MG TABLET PO SCH (10:58)
--- NOTE | 2023-09-21 15:32 | Discharge Summary ---
Date of Service September 21, 2023 Admission HPI Per Admitting Provider The patient is a 78-year-old female with a past medical history including blood clots in the 90s, palpitations, ocular hypertension, hyperlipidemia, hypertension, GERD without esophagitis, bronchitis and is a former smoker. She presents to the emergency department symptoms as noted above. Upon arrival to the emergency department, the patient's pulse ox on room air was 84%, and on 3 L proved to the mid 90s. While in the emergency department, she remained in normal sinus rhythm, with max rate recorded 78, and decreased to 57 at last recording. Patient underwent CT angiography of chest while in the ED, which showed multiple areas of right-sided pulmonary emboli. Pulmonary nodules on the left side up to 4 mm in size were seen, with recommendation for repeat CT in 12 months. Of note, patient's father had lung cancer Principal Diagnosis Pulmonary Embolism Discharge Exam Constitutional: well-appearing, no acute distress HEENT: NCAT, no conjunctival injection CV: regular rhythm, no murmur appreciated, extremities well-perfused, no LE edema Resp: CTABL, no wheezes/rales/rhonchi appreciated, no increased work of breathing GI: soft, nondistended, nontender MSK: no gross deformities appreciated Skin: warm, dry, no rash appreciated Neuro: alert, oriented, no focal neurologic deficit appreciated Discharge Data Allergies Allergy/AdvReac Type Severity Reaction Status Date / Time aspirin Allergy Unknown Verified 09/21/23 02:38 Penicillins Allergy Unknown Verified 09/21/23 02:38 Consultations 09/21/23 01:56 ED Decision to Admit Stat 09/21/23 03:50 Consult Pulmonology Routine Ordered Studies 09/21/23 00:27 CT angio chest PE protocol Stat Hospital Course (1) Acute respiratory failure with hypoxia: Pulmonary Embolism CT angiography with noted right-sided pulmonary emboli TTE without evidence of right heart strain Initially started on heparin drip, transitioned to Eliquis Plan to continue Eliquis 10mg BID x 7 days, followed by 5mg BID Given that this is second unprovoked PE, will likely need life long an ticoagulation Hypercoagulable profile ordered and pending Pulmonary Nodule Large 2.0 centimeter groundglass opacity appreciated in the LEFT upper lobe. Given smoking history will need f/u imagining in 3-6 months F/u with pulm in 1 month Hypercapnia Noted on labs Would benefit from sleep study as an outpatient Pulmonary vascular congestion noted on CT- Patient did receive a single dose from of furosemide 40 mg IV from the ED Euvolemic on exam prior to d/c Hypertension- Continue hydrochlorothiazide, metoprolol succinate and aspirin GERD- Continue famotidine (2) Pulmonary embolism: (3) COPD exacerbation: (4) Palpitations: (5) Hyperlipidemia: (6) HTN (hypertension): (7) GERD without esophagitis: Total Time Total Time Spent Total Time Spent (In Minutes): <30 Discharge Plan Discharge Items Patient Disposition: Home - Self-Care Reason For Visit: PE's,PALPITATIONS, HYPOXIA Discharge Diagnosis: Pulmonary Embolism Condition on Discharge: Fair Activity: Resume your previous activity Non-emergency contact: Primary Care Provider Call non-emergency contact if: you have any medication questions and your symptoms worsen Follow-up/Referrals: Nnamdi Wright MD [Physician] - (1 month f/u ) Jere Fernandez DO [Primary Care Provider] - Diet: Regular Addtl Attending Provider Instructions: You were admitted with a pulmonary embolism. We started you on a blood thinner, Eliquis. We sent a prescription for Eliquis to your pharmacy. Your next dose should be at 10pm tonight. For the next 7 days, you should take 10mg (2 tabs) every 12 hours, after that you should take 5mg (1 tab) every 12 hours. 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 If you do not hear from there offices with in the next 2 days, please reach out to them to schedule an appointment. We did see a pulmonary nodule on your CT scan, many pulmonary nodules are benign, but you should follow up with pulmonology for repeat imaging. If you have increased shortness of breath, chest pain or if your oxygen saturation on your pulse ox is less than 90, you should call your primary care doctor/go back to the ED. Pending Studies at Discharge: Yes (hypercougubility panel ) Stand-Alone Forms: [employer], Smoking Cessation Medications and DC Order Prescriptions: New Eliquis 5 mg tablet 5 mg PO Q12H Qty: 74 0RF Rx Instructions: 10mg (2 tabs) every 12 hours for 7 days. 5mg (1 tab) every 12 hours thereafter. Continued omega-3 acid ethyl esters 1 gram capsule 1 cap PO DAILY Qty: 90 3RF aspirin 81 mg tablet,delayed release (DR/EC) 81 mg PO DAILY Qty: 90 3RF hydrochlorothiazide 25 mg tablet 25 mg PO DAILY Qty: 90 3RF triamcinolone acetonide 0.1 % cream 1 applic TOP BID Qty: 15 1RF famotidine [Pepcid] 20 mg tablet 20 mg PO BID PRN (Reason: Acid Reflux) metoprolol succinate 25 mg tablet extended release 24 hr 25 mg PO DAILY Qty: 90 3RF Discharge Orders: Discharge Order (Routine); Ordered 09/21/23 Ordered By: Dianne Camacho Admission Data Admit Date/Time: 09/21/23 03:19 Attending Provider: Jai Hollis Admit Provider: Eugenio Murry Primary Care Provider: Jere Fernandez Other Providers: Eugenio Murry; Nnamdi Wright Other Interventions: Discharge Summary Assessment (RN) Last Done: 09/21/23 16:08 Supervising Physician Co-Signing Physician Notes I personally examined the patient and verified all navarro points of history and exam, discussed case, and agree with decision making with Dr Caamcho feeling better overall, walking around without PRASAD, pulse ox 91-93 on RA the whole time we talk vitals noted nad heent nc at mmm breathing unlabored no accessory muscles good effort skin no rashes no pallor or icterus neuro no focal deficits PE- doing well. appears safe for DOAC --> dc home. she prefers this plan. prior PE was in era of coumadin - discussed major differences. also discussed rationale for some form of lifelong anticoagulation. otherwise as above Resident Activity Tracking Resident Involvement: Resident Care Provided Care Provided: Adult Hospital Medicine
--- NOTE | 2023-09-21 16:36 | Billing Data ---
Date of Service September 21, 2023 Coding Level of Care Code 94483 IN/OBS DISCH 30 MIN/LESS
--- NOTE | 2023-09-21 20:31 | XCELERA ---
[id number]
[2023-09-24 00:38] LABS: Anti-Thrombin III Activity 118 % normal (80-135); Protein S Functional(Activity) 104 % normal (60-140)
[2023-09-26 20:58] LABS: Factor 5 Mutation NEGATIVE
== END 2023-09-21 16:08 | disposition home or self-care (01) ==
LOC: EDINP 00:12 → ED 00:12 → SUATTDRO 03:19 → EDINP 03:49